=== PATIENT | female | born 1955 | race Caucasian/White ===

== ENCOUNTER → 2016-12-08 | Outpatient (CLI) | payer OTHER ==
[~2016-12-08] MED LIST: IOPAMIDOL (ISOVUE-300) 100 ML BTL IV ONE
--- NOTE | 2016-12-08 20:42 | IR ---
Left Lower Extremity Venogram Interventional Consult Relevant History: The patient had the great saphenous vein ablated before for insufficiency. Subseq uently, she developed a left medial ankle ulcer. Ultrasound interrogation at that time shows patent great saphenous system. This was subsequently retreated November 10, 2016. The patient now has wors ening ulceration. Bedside Ultrasound: ALT is patent. The great saphenous system is widely patent. The deep system is also patent. It is now twice that the great saphenous system has failed to shutdown after ablation. This is nayely arreola wonder of deep system hypertension and reflux. The patient had a history of DVT in 1984, with f ilter placement. I decided that a venogram would be very important in this patient. Informed Consent: Obtained from the patient. Risks and benefits were discussed. Cross Cutting Measure: Patient's current list of medications including all known prescriptions, over -the-counters, herbals, and vitamin/mineral/dietary supplements are reviewed. Medications' name, dos age, frequency, and route of administration are confirmed. Patient is a non-smoker. Prophylactic Antibiotic: Cefazolin was not ordered and administered for antimicrobial prophylaxis be cause it was not medically necessary. VTE Prophylaxis: There is not an order for VTE prophylaxis to be given within 24 hours of the proced ure end time. VTE prophylaxis was not given because it was not medically necessary. Technique: Patient is placed in supine position. A "timeout" procedure was performed to identify th e correct patient and the correct procedure. 1% Xylocaine was used for local anesthetic. All eleme nts of maximal sterile barrier technique, including cap, mask, sterile gown, sterile gloves, large st erile sheet, hand hygiene, and 2% chlorhexidine for cutaneous antisepsis, followed. Ultrasound evaluation of potential access site was performed. After successfully identifying a paten t vessel, ultrasound guidance was used to puncture the vessel. A permanent recording was created for the patient's record. When ultrasound is used, sterile gel and probe covers are used. The left common femoral vein is accessed under ultrasound guidance using a Micropuncture needle. 0.0 35 wire is advanced, followed by Micropuncture sheath. Outflow venogram is performed. Sheath was then exchanged over a wire for a Kumpe catheter, and central venogram was performed. Fluoroscopy: 1.1 minutes, 6 images. Findings: The left iliac and external iliac veins are patent. There is no evidence for May-Thurner syndrome. The IVC is patent. What is amazing is that the patient the has two IVC filters in place. One has fractured struts, with some displaced struts, eccentrically located at the bifurcation of the IVC, very lowly positioned. The second one is tilted into the left renal vein, almost horizontal or perpendicular in relationship with the IVC. This one does not have any fractured struts or displaced struts. These filters are very old, no longer used today, and are not removal. Amazingly, neither of these filters are causing any IVC stricture, thrombosis, or flow limiting. There is an area of irregularity at the external iliac vein, in junction with the internal iliac vein . There is reflux in the internal iliac vein. However, I did not see any significant reflux in the common and external iliac system. Impressions 1. No evidence for May-Thurner syndrome. 2. Patent central veins, without stricture, stenosis, or clot. 3. Nonremovable very old filters, as above described in detail. I would think at this point they ar e best left in place, as removal would require major surgery. Plan: I have scheduled the patient back for a repeat upright lower extremity duplex Doppler for furt her interrogation of what is patent in the superficial system and also of the deep system in the left lower extremity. Total [id number] consultation was 25 minutes. The patient expressed understanding and agreement to all the materials discussed today.
== END ==
LOC: FIMAGING 13:44
PROVIDERS: ATTEND Radiology Diagnostic Radiology
PROC: B54CZZA Ultrasonography of Left Lower Extremity Veins, Guidance (ICD-10-PCS; principal; 2016-12-08)
DX: L89.520 Pressure ulcer of left ankle, unstageable (principal)
CPT/HCPCS: 75820; C1769; J1644; Q9967

== ENCOUNTER → 2016-12-13 | Outpatient (CLI) | payer OTHER ==
--- NOTE | 2016-12-14 17:28 | US ---
Left Lower Extremity Duplex Venous Doppler Interventional Consult Indication: Continued ulceration. Post great saphenous vein ablation now twice in the left leg, with preliminary ultrasound evaluation showing that it is still patent. Post venography of the left centra l venous system, showing mild area of narrowing that does not radiographically appear to be hemodynam ically significant. History of DVT. Assess for reflux and what is open at this time. Technique: We tried an upright Doppler evaluation. This was unsuccessful. Patient was then placed in steep reverse Trendelenburg position on a tilt bed. Extensive evaluation of the deep and superficial systems was performed. Findings: Again, the great saphenous vein is patent. Above the knee, there is no reflux in the great saphenous vein. Below the knee, at the proximal calf, great saphenous vein refluxes 2.4 seconds. The vein measures 3 mm in size. There is only about a 10 cm length of the great saphenous vein below the knee where it is straight. More distal to that, it br anches into multiple superficial veins, all of which show some degree of reflux, all the way down to the ulcer, which is at the medial ankle. As for the deep system, there is reflux in the common femoral vein of 1.7 seconds. The femoral vein d oes not show reflux. The popliteal vein shows reflux of 3.6 seconds. There is no reflux in the training designer ior tibial veins. Impression: 1. A mixed picture. 2. Most of the abnormal refluxing veins are below the knee, specifically a 10 cm straight segment of the great saphenous vein, and the popliteal vein in the deep system. 3. I am still unclear as to whether the external iliac vein narrowing that by visual inspection does not seem to be much, is hemodynamically significant, and whether it translates to lack of outflow at the ankle level. 4. I am still amazed that the great saphenous system is still open, after two laser ablations. The above was discussed with Dr. Farrah Ordaz. The ulcer is clinically improving. Patient may have a c ombination of deep and superficial insufficiency or hypertension that is related to presence of two f ilters in the IVC as well. At this time, we will continue clinical management before proceeding with any additional procedures. Total face to face consultation time was 45 minutes. Cross-Cutting Measure: Patient's current list of medications including all known prescriptions, over -the-counter medications, herbals, and vitamin/mineral/dietary supplements are reviewed. Medications ' name, dosage, frequency, and route of administration are confirmed. Patient is a nonsmoker.
== END ==
LOC: FIMAGING 12:39
PROVIDERS: ATTEND Radiology Diagnostic Radiology
DX: I87.9 Disorder of vein, unspecified (principal); L97.329 Non-pressure chronic ulcer of left ankle with unspecified severity

== ENCOUNTER → 2017-07-23 | Outpatient (CLI) | payer OTHER ==
[~2017-07-23] MED LIST changes: +IOPAMIDOL (ISOVUE 370) 100 ML BTL IV ONE; -IOPAMIDOL (ISOVUE-300) 100 ML BTL IV ONE
== END ==
LOC: FIMAGING 08:35
DX: I87.1 Compression of vein (principal); Z96.643 Presence of artificial hip joint, bilateral
CPT/HCPCS: Q9967

== ENCOUNTER 2018-01-04 13:52 | Inpatient (IN) | payer OTHER ==
[2018-01-04] MEDS ORDERED: ONDANSETRON 4 MG/2 ML VIAL IVP PRN (14:38)
[2018-01-04] MEDS ORDERED: ACETAMINOPHEN 325 MG TAB PO PRN (14:38)
[2018-01-04] MEDS ORDERED: ONDANSETRON DISINTEGRATING 4 MG TAB PO PRN (14:38)
[2018-01-04 16:22] LABS: PLATELET COUNT 386 10^3/uL (150-400)
[2018-01-04] MEDS: VANCOMYCIN 1.25 GM in NS 250 ML IV SCH (17:13)
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
--- NOTE | 2018-01-04 19:44 | PDMN ---
Medical Necessity Medical necessity: C/M review: patient meets INPT criteria under M-350 Deep vein thrombosis of lower extremities, M-70 Cellulitis: Acute and persistent left diatal thigh and knee DVT on US, worsening of left lower extremity swelling and erythema requiring planned Wound care consult, ongoing IV Vancomycin Q 12 hrs., IV Morphine, subcutaneous Lovenox BID, acute inpt PT/OT, comorbid chronic medial left mallelolus skin ulceration extending above and below the level of the ankle (pictures of wound prior to Jackie boot placement) and erythema extending above the level of the Jackie boot, small incision below left knee medially due recent vein stripping - present on admission, history of chronic venous stasis of LLE, DVT of LLE in the s with IVC filter placement (still present by recent imaging), portal hypertension, portal vein thrombosis, esophageal varices. MD anticipates > 2 MN LOS for ongoing med nec for eval and TX of above.
[2018-01-04] MEDS: ENOXAPARIN 100 MG/ML SYR SC SCH (20:39)
[2018-01-04] MEDS: HYDROCODONE/APAP 5/325 TAB PO PRN (20:40)
[2018-01-05] MEDS: VANCOMYCIN 1.25 GM in NS 250 ML IV SCH ×2 (02:24→14:39)
[2018-01-05 05:27] LABS: PLATELET COUNT 368 10^3/uL (150-400)
[2018-01-05] MEDS: HYDROCODONE/APAP 5/325 TAB PO PRN ×3 (07:57→20:44)
[2018-01-05] MEDS ORDERED: ENOXAPARIN 40 MG/0.4 ML SYR SC SCH (09:00)
[2018-01-05] MEDS ORDERED: HYDROCODONE/APAP 5/325 TAB PO PRN (10:01)
[2018-01-05] MEDS: ENOXAPARIN 100 MG/ML SYR SC SCH ×2 (10:05→20:42)
--- NOTE | 2018-01-05 10:49 | HOSPPROG ---
Hospitalist Progress Note Assessment/Plan: 62y female with c/o leg redness and pain. First encounter, chart reviewed. D/W Dr Armstrong. #DVt -LLE -start coumadin -pt has used this in the past -bridge with lovenox -IVC filter in since 1979 #Cellulitis -LE on vanco -defer to ID #LLE wound -wound care ordered #Dispo -unclear -when ok with ID Subjective: Up in chair. Feels better today. Still weak. Objective: Vital Signs Temp Pulse Resp BP Pulse Ox 36.4 C 77 14 111/77 97 01/05/18 07:33 01/05/18 07:33 01/05/18 07:33 01/05/18 07:33 01/05/18 07:33 Laboratory Results 01/05/18 05:08 01/05/18 05:08 01/04/18 01/05/18 01/06/18 05:59 05:59 05:59 Intake Total 450 Balance 450 - Physical Exam Constitutional: no apparent distress, appears nourished, not in pain Eyes: PERRL, anicteric sclera, EOMI Ears, Nose, Mouth, Throat: moist mucous membranes, hearing normal, ears appear normal Cardiovascular: edema, No JVD, No tachycardia Respiratory: no respiratory distress, no rales or rhonchi, reduced air movement Gastrointestinal: normoactive bowel sounds, No tenderness, No ascites Skin: warm, erythema, No mottled Musculoskeletal: normal joint ROM, no joint effusions, generalized weakness Neurologic: AAOx3 Psychiatric: interacting appropriately, not anxious, not encephalopathic, thought process linear ICD10 Worksheet Patient Problems: Problems Problem Status Onset MRSA (methicillin resistant Staphylococcus aureus) Acute 10/27/16
[2018-01-05] MEDS ORDERED: WARFARIN SODIUM 5 MG TAB PO SCH (16:00)
--- NOTE | 2018-01-05 16:17 | ASMTCMCOM ---
CM Note CM Note Notes: Chart reviewed for discharge planning purposes. Pt is 62 year old female who lives Independently with her . She is employed outside the home. She is admitted with DVT and lower extremity cellulitis. ID is consulted as well. Per PT patient has no needs at this time. CM available to follow should needs arise. Date Signed: 01/05/2018 04:16 PM Electronically Signed By:Kylah Sheehan RN
--- NOTE | 2018-01-05 17:07 | PCMIDPN ---
Assessment/Plan: Assessment: Left lower extremity cellulitis with increase in swelling in the recent week. Failure of oral antibiotics. Patient was found to have DVT on evaluation in the emergency room. Patient now on IV vancomycin for potential overlying cellulitis as well as anticoagulation. Will continue to evaluate daily. Plan: 1. Continue IV vancomycin. 2. Evaluate clinically the left lower extremity on a daily basis. 01/05/18 17:06 Subjective: Patient is resting comfortably in her hospital room. She is feeling somewhat better. Notes that the redness up near her knee on her left leg is improved and that the swelling is somewhat improved from yesterday as well. Objective: Vancomycin # 1 Vital Signs Temp Pulse Resp BP Pulse Ox 36.3 C 77 14 112/72 95 01/05/18 15:18 01/05/18 15:18 01/05/18 15:18 01/05/18 15:18 01/05/18 15:18 Laboratory Results 01/05/18 05:08 01/05/18 05:08 01/04/18 01/05/18 01/06/18 05:59 05:59 05:59 Intake Total 450 Balance 450 - Physical Exam General Appearance: WD/WN, alert, no apparent distress, non-toxic Cardiac/Chest: regular rate, rhythm, No tachycardia Extremities: erythema, No non-tender, No normal inspection ( redness and swelling left lower extremity.) Skin: normal color, warm/dry, No rash Neuro/Psych: alert, normal mood/affect, oriented x 3 ICD10 Worksheet Patient Problems: Problems Problem Status Onset MRSA (methicillin resistant Staphylococcus aureus) Acute 10/27/16
[2018-01-06] MEDS: VANCOMYCIN 1.25 GM in NS 250 ML IV SCH ×2 (03:28→15:35)
[2018-01-06 05:33] LABS: PLATELET COUNT 396 10^3/uL (150-400)
[2018-01-06 05:41] LABS: INR 1.07 (0.83-1.16); PROTIME(PATIENT) 14.1 SEC (12.0-15.0)
[2018-01-06] MEDS: HYDROCODONE/APAP 5/325 TAB PO PRN ×3 (07:52→20:54)
--- NOTE | 2018-01-06 08:13 | SOAPPROG ---
SOAP Progress Note Assessment/Plan: Assessment: 62 yo well known to me with complex vascular picture had RFA twice with recurrence and most recently vein stripping Step cellulitus Much improved I placed honey on superior wound Adaptic, gauze and coban on l medial malleolus interdry to groin fold S: Better but wharf tender head O: Erythema much improved superior incision with eschar, less than 1 cm deep Inferior incision with minimal erythema, some mild exudate Groin incision with minor dehiscence Plan: 01/06/18 08:11 Objective: Vital Signs Temp Pulse Resp BP Pulse Ox 36.4 C 70 14 135/77 H 95 01/06/18 07:07 01/06/18 07:07 01/06/18 07:07 01/06/18 07:07 01/06/18 07:07 Laboratory Results 01/06/18 05:00 01/06/18 05:00 01/05/18 01/06/18 01/07/18 05:59 05:59 05:59 Intake Total 450 Balance 450 PT 14.1 SEC (12.0-15.0) 01/06/18 05:00 INR 1.07 (0.83-1.16) 01/06/18 05:00 ICD10 Worksheet Patient Problems: Problems Problem Status Onset MRSA (methicillin resistant Staphylococcus aureus) Acute 10/27/16
[2018-01-06] MEDS: ENOXAPARIN 100 MG/ML SYR SC SCH (10:11)
[2018-01-06] MEDS: MULTIVITAMINS 1 EACH TAB PO SCH (11:10)
[2018-01-06] MEDS: ASPIRIN 81 MG CHEWABLE TAB PO SCH (11:10)
--- NOTE | 2018-01-06 11:20 | HOSPPROG ---
Hospitalist Progress Note Assessment/Plan: 62y female with c/o leg redness and pain. D/W Dr Ordaz. #DVT -reviewed with Dr Ordaz -NOT DVT, scar tissue -stop coumadin -pt has had dvt in the past -give lovenox prophylactic only -IVC filter in since 1979, per patient, surgery says not to remove #Cellulitis -LE on vanco -defer to ID #LLE wound -wound care ordered #Dispo -unclear -when ok with ID Subjective: Up in the chair. Feels better today. Slept well. Objective: Vital Signs Temp Pulse Resp BP Pulse Ox 36.4 C 70 14 135/77 H 95 01/06/18 07:07 01/06/18 07:07 01/06/18 07:07 01/06/18 07:07 01/06/18 07:07 Laboratory Results 01/06/18 05:00 01/06/18 05:00 01/05/18 01/06/18 01/07/18 05:59 05:59 05:59 Intake Total 450 Balance 450 PT 14.1 SEC (12.0-15.0) 01/06/18 05:00 INR 1.07 (0.83-1.16) 01/06/18 05:00 - Physical Exam Constitutional: no apparent distress, appears nourished, not in pain Eyes: PERRL, anicteric sclera, EOMI Ears, Nose, Mouth, Throat: moist mucous membranes, hearing normal, ears appear normal Cardiovascular: edema, No JVD, No tachycardia Respiratory: no respiratory distress, no rales or rhonchi, clear to auscultation Gastrointestinal: normoactive bowel sounds, No tenderness, No ascites Skin: warm, erythema, induration Musculoskeletal: normal joint ROM, no joint effusions, generalized weakness Neurologic: AAOx3 Psychiatric: interacting appropriately, not anxious, not encephalopathic, thought process linear ICD10 Worksheet Patient Problems: Problems Problem Status Onset MRSA (methicillin resistant Staphylococcus aureus) Acute 10/27/16
[2018-01-06] MEDS ORDERED: ENOXAPARIN 30 MG/0.3 ML SYR SC SCH (11:30)
[2018-01-06] MEDS: ENOXAPARIN 40 MG/0.4 ML SYR SC SCH (12:04)
--- NOTE | 2018-01-06 15:00 | PCMIDPN ---
Assessment/Plan: Assessment: Left lower extremity cellulitis with increase in swelling in the recent week. Failure of oral antibiotics. re-evaluation of extremity ultrasound reveals that formerly called venous clot is probably secondary to her recent multiple venous ablation procedures. given that there is no clear clot in the left lower extremity now this may be entirely due to cellulitis that did not respond to oral outpatient therapy. Will continue on IV vancomycin for cellulitis. Will continue to evaluate daily. plan to maintain the vancomycin therapy as an outpatient for entire course given her improvement here and her lack of response to oral beta lactams as an outpatient. Plan: 1. Continue IV vancomycin. 2. Evaluate clinically the left lower extremity on a daily basis. 01/05/18 17:06 01/06/18 14:57 Subjective: Patient is sitting up with family in 1 of the sitting rooms on the hospital floor. She states that she is feeling better. She states the redness in her leg is decreased as well as the size. No fevers or chills. No rash. Objective: Vancomycin # 2 Vital Signs Temp Pulse Resp BP Pulse Ox 36.7 C 68 16 136/88 H 95 01/06/18 11:23 01/06/18 11:23 01/06/18 11:23 01/06/18 11:23 01/06/18 11:23 Laboratory Results 01/06/18 05:00 01/06/18 05:00 01/05/18 01/06/18 01/07/18 05:59 05:59 05:59 Intake Total 450 Balance 450 - Physical Exam General Appearance: WD/WN, alert, no apparent distress, non-toxic Extremities: non-tender, swelling, erythema, No normal inspection ( left lower extremity with increased edema. Decreased from baseline however. Erythema decreased as well.) Skin: normal color, warm/dry, No rash Neuro/Psych: alert, normal mood/affect, oriented x 3 ICD10 Worksheet Patient Problems: Problems Problem Status Onset MRSA (methicillin resistant Staphylococcus aureus) Acute 10/27/16
[2018-01-07] MEDS: VANCOMYCIN 1.25 GM in NS 250 ML IV SCH (03:09)
[2018-01-07] MEDS: HYDROCODONE/APAP 5/325 TAB PO PRN ×2 (06:02→15:34)
[2018-01-07] MEDS: ASPIRIN 81 MG CHEWABLE TAB PO SCH (09:33)
[2018-01-07] MEDS: ENOXAPARIN 40 MG/0.4 ML SYR SC SCH (09:33)
[2018-01-07] MEDS: MULTIVITAMINS 1 EACH TAB PO SCH (09:33)
--- NOTE | 2018-01-07 10:38 | SOAPPROG ---
SOAP Progress Note Assessment/Plan: Assessment/Plan: Carlyle is a 62yo F with history of left sided DVT, venous stasis and chronic wounds of the Left lower extremity. Recent vein stripping performed at outside facility. Admitted with LLE cellulitis Interdry in left groin fold, minimal wound dehiscence LLE wound care - adaptic to lower malleolus wound, honey to upper calf wound Lovenox prophylaxis Continue IV Vancomycin per ID S: Slept well. Comfortable. Reports her Left groin incision has been producing drainage which soaked her clothing. O: Patient is alert and sitting in the recliner in the window enjoying the morning sun. HENT: Head is normocephalic and atraumatic. Pupils equal and round. RESP: No increased work of breathing. SKIN: Left groin incision is clean with mild dehiscence, serous fluid stained on interdry. LLE dressings intact NEURO: Alert and oriented x 3. CN and motor grossly intact. PSYCH: Mood and affect normal. No acute distress. Objective: Vital Signs Temp Pulse Resp BP Pulse Ox 36.4 C 65 16 146/68 H 96 01/07/18 07:24 01/07/18 07:24 01/07/18 07:24 01/07/18 07:24 01/07/18 07:24 Laboratory Results 01/06/18 05:00 01/06/18 05:00 01/06/18 01/07/18 01/08/18 05:59 05:59 05:59 Intake Total 1000 Balance 1000 PT 14.1 SEC (12.0-15.0) 01/06/18 05:00 INR 1.07 (0.83-1.16) 01/06/18 05:00 ICD10 Worksheet Patient Problems: Problems Problem Status Onset MRSA (methicillin resistant Staphylococcus aureus) Acute 10/27/16
--- NOTE | 2018-01-07 13:15 | HOSPPROG ---
Hospitalist Progress Note Assessment/Plan: 62y female with c/o leg redness and pain. D/W Dr Jamil. #DVT -per Dr Ordaz no DVT -NOT DVT, multiple venous ablation procedures recently -stop coumadin -pt has had dvt in the past -give lovenox prophylactic only -IVC filter in since 1979, per patient, surgery says not to remove #Cellulitis -Failure of oral antibiotics -continue on IV vancomycin for cellulitis. -plan to maintain the vancomycin therapy as an outpatient #LLE wound -wound care ordered #Dispo -unclear -when ok with ID Subjective: Feeling well. Up in chair. No new issues. Eager to go home soon. Objective: Vital Signs Temp Pulse Resp BP Pulse Ox 36.4 C 65 16 146/68 H 96 01/07/18 07:24 01/07/18 07:24 01/07/18 07:24 01/07/18 07:24 01/07/18 07:24 Laboratory Results 01/06/18 05:00 01/06/18 05:00 01/06/18 01/07/18 01/08/18 05:59 05:59 05:59 Intake Total 1000 Balance 1000 PT 14.1 SEC (12.0-15.0) 01/06/18 05:00 INR 1.07 (0.83-1.16) 01/06/18 05:00 - Physical Exam Constitutional: no apparent distress, appears nourished, not in pain Eyes: PERRL, anicteric sclera, EOMI Ears, Nose, Mouth, Throat: moist mucous membranes, hearing normal, ears appear normal Cardiovascular: edema, No JVD, No tachycardia Respiratory: no respiratory distress, no rales or rhonchi, clear to auscultation Gastrointestinal: normoactive bowel sounds, No tenderness, No ascites Skin: warm, erythema, No mottled Musculoskeletal: normal joint ROM, no joint effusions, generalized weakness Neurologic: AAOx3 Psychiatric: interacting appropriately, not anxious, not encephalopathic, thought process linear ICD10 Worksheet Patient Problems: Problems Problem Status Onset MRSA (methicillin resistant Staphylococcus aureus) Acute 10/27/16
--- NOTE | 2018-01-07 13:36 | PCMIDPN ---
Assessment/Plan: Assessment/Plan: * Left lower extremity cellulitis with underlying venous insufficiency: Clinically improved with antibiotic therapy. [facility] shows growth of group A Streptococcus. Clinically this is most likely pathogen. Will therefore discontinue vancomycin and transition to cefazolin. Given overall improvement, suspect she may be able to transition to oral antibiotics to complete therapy in next 24-48 hours. Initial antibiotic therapy orally prior to admission was of short duration and now that she has shown improvement suspect she may continue to improve at that point in time on oral therapy. 01/07/18 13:32 Subjective: Patient feels significantly improved. Leg erythema decreased. Objective: Vital Signs Temp Pulse Resp BP Pulse Ox 36.4 C 65 16 146/68 H 96 01/07/18 07:24 01/07/18 07:24 01/07/18 07:24 01/07/18 07:24 01/07/18 07:24 Laboratory Results 01/06/18 05:00 01/06/18 05:00 01/06/18 01/07/18 01/08/18 05:59 05:59 05:59 Intake Total 1000 Balance 1000 Vancomycin # 3 Wound culture 01/04/2018 group A Streptococcus Blood cultures x2 no growth - Physical Exam General Appearance: alert, no apparent distress EENT: No scleral icterus, No thrush, No conjunctival petechiae Respiratory: lungs clear, No respiratory distress Cardiac/Chest: regular rate, rhythm, systolic murmur (2/6 left upper sternal border) Extremities: inflammation (Left lower extremity with ulceration present along medial aspect; erythema markedly reduced with some desquamating skin; separate wound more superiorly with small amount of necrosis centrally) ICD10 Worksheet Patient Problems: Problems Problem Status Onset MRSA (methicillin resistant Staphylococcus aureus) Acute 10/27/16
[2018-01-07] MEDS: ceFAZolin 2 GM/SWFI 2 GM/20 ML SYR IVP SCH ×2 (13:50→22:42)
[2018-01-07] MEDS ORDERED: ceFAZolin 2 GM/DEXTROSE 100 ML IV SCH (14:00)
--- NOTE | 2018-01-07 14:13 | ASMTCMCOM ---
CM Note CM Note Notes: Pts case discussed with NAOMY Ascencio and Candelaria Aguilar NP regarding d/c POC. Pt has been switched from vancomycin to cefazolin. Pt will eventually be switched to oral antibiotics in the next 24-48 hrs. Pt will most likely d/c independent when medically stable. CM available for changes. Plan: Independent Date Signed: 01/07/2018 02:13 PM Electronically Signed By:ALEXANDER Damian
[2018-01-08 07:44] VITALS: RESP 18
[2018-01-08] MEDS: HYDROCODONE/APAP 5/325 TAB PO PRN ×2 (08:12→12:29)
[2018-01-08] MEDS: ENOXAPARIN 40 MG/0.4 ML SYR SC SCH (08:12)
[2018-01-08] MEDS: ASPIRIN 81 MG CHEWABLE TAB PO SCH (08:13)
[2018-01-08] MEDS: MULTIVITAMINS 1 EACH TAB PO SCH (08:13)
[2018-01-08] MEDS: ceFAZolin 2 GM/SWFI 2 GM/20 ML SYR IVP SCH (09:20)
--- NOTE | 2018-01-08 10:20 | PCMIDPN ---
Assessment/Plan: Assessment/Plan: 1. LLE cellulitis with chronic wound: -marked improvement in degree of erythema with very minimal if any residual changes now -chronic lower leg wound noted and examined with wound care team. stable with chronic venous stasis dermatitis changes of skin around wound -edema of LLE noted -REviewed wound cultures from 01/04/18: showing Group A strep but also Staph aureus. Called and spoke to micro/Mattie. She has now identified it as Mrsa -placed patient in contact isolation - patient has lost peripheral IV. Given clinical improvement overall feel she can go to [facility] - Will need dual therapy with bactrim (for mrsa) and keflex ( for strep) but hopefully only short course barring anything new from #2 - reviewed side effects of therapy with patient. - care coordinated with wound care team, surgery, and Rn. 2. LLE wound from vein stripping -some drainage from it. wound depth around a little more than 1cm and with undermined edge - Recommend evaluation further to r/o possible abscess -Will order USG to start with - care coordinated with Dr. Ordaz - care coordinated with wound care team and Rn. Meds ancef 01/07/18 s/p vanco 01/04/18- 01/07/18 Subjective: afebrile. overall feels much better than on admit. less overall pain. most of her tenderness is around upper leg wound. some drainage from there but also had medi-honey placed two days ago. denies sob, abd pain or diarrhea. Objective: Vital Signs Temp Pulse Resp BP Pulse Ox 36.5 C 90 18 160/100 H 93 01/08/18 07:39 01/08/18 07:39 01/08/18 07:39 01/08/18 07:39 01/08/18 07:39 Laboratory Results 01/06/18 05:00 01/06/18 05:00 01/07/18 01/08/18 01/09/18 05:59 05:59 05:59 Intake Total 1000 20 Balance 1000 20 - Physical Exam General Appearance: alert, no apparent distress Respiratory: lungs clear Cardiac/Chest: regular rate, rhythm Extremities: swelling Abdomen: normal bowel sounds, non-tender, soft, No distended Skin: erythema (very mild erythema residual near vein stripping wound site. some drainage from there, which bubbles up when area around wound palpated. skin thickened around wound. very tender. wound probed, about a little more than 1cm deep with undermined edges especially laterally. ) - Time Spent With Patient Time Spent with Patient: greater than 35 minutes Time Spent with Patient: Greater than 35 minutes spent on this patients care, greater than 50% of time spent counseling, educating, and coordinating care regarding the above mentioned plan. ICD10 Worksheet Patient Problems: Problems Problem Status Onset MRSA (methicillin resistant Staphylococcus aureus) Acute 10/27/16
[2018-01-08] MEDS ORDERED: SULFAMETHOX/TMP 800/160 MG 1 TAB PO SCH (10:45)
--- NOTE | 2018-01-08 11:09 | HOSPPROG ---
Hospitalist Progress Note Assessment/Plan: 62y female with c/o leg redness and pain. Today is my 1st encounter with the patient. Chart reviewed. Reviewed her care w Dr Scanlon. * left lower extremity cellulitis with underlying venous insufficiency -history of vancomycin and cefazolin -will need dual therapy with Bactrim and Keflex -very appreciative of infectious disease * chronic left lower extremity wound from vein stripping -infectious Disease recommending further evaluation to rule out abscess -ultrasound pending * DVT/ see below -per previous provider who spoke with Dr. Ordaz and she does not have a DVT this is due to multiple venous ablation procedures -Coumadin discontinued -on low molecular weight heparin for prophylaxis treatment -patient has an IVC filter in place since 1979 -she is had a DVT in the past *Plan: will evaluate ultrasound, if no fluid collection, can dc home on 3-5 days of oral abx. Subjective: Carlyle is feeling well, ready to go home. Objective: Vital Signs Temp Pulse Resp BP Pulse Ox 36.5 C 90 18 160/100 H 93 01/08/18 07:39 01/08/18 07:39 01/08/18 07:39 01/08/18 07:39 01/08/18 07:39 Laboratory Results 01/06/18 05:00 01/06/18 05:00 01/07/18 01/08/18 01/09/18 05:59 05:59 05:59 Intake Total 1000 20 Balance 1000 20 PT 14.1 SEC (12.0-15.0) 01/06/18 05:00 INR 1.07 (0.83-1.16) 01/06/18 05:00 - Physical Exam Constitutional: no apparent distress, appears nourished Eyes: PERRL Ears, Nose, Mouth, Throat: hearing normal Cardiovascular: regular rate and rhythym Respiratory: no respiratory distress Gastrointestinal: normoactive bowel sounds Skin: warm Musculoskeletal: full muscle strength Neurologic: AAOx3 Psychiatric: interacting appropriately, not anxious ICD10 Worksheet Patient Problems: Problems Problem Status Onset MRSA (methicillin resistant Staphylococcus aureus) Acute 10/27/16
[2018-01-08] MEDS ORDERED: CEPHALEXIN 500 MG CAP PO SCH (12:00)
--- NOTE | 2018-01-08 12:32 | SOAPPROG ---
SOAP Progress Note Assessment/Plan: Assessment/Plan: Carlyle is a 62yo F with history of left sided DVT, venous stasis and chronic wounds of the Left lower extremity. Recent vein stripping performed at outside facility. Admitted with LLE cellulitis IV has infiltrated. Transition to PO antibiotics Wound care following Erythema significantly improved, pain improved Dispo: likely home later today if cleared by ID, hospitalists. F/u wound healing center. seen c Dr. Ordaz S: Feeling well O: Comfortable appearing. Eating breakfast in recliner. RESP: No increased work of breathing. SKIN: Erythema of LLE has resolved. Dressings intact Objective: Vital Signs Temp Pulse Resp BP Pulse Ox 36.5 C 90 18 160/100 H 93 01/08/18 07:39 01/08/18 07:39 01/08/18 07:39 01/08/18 07:39 01/08/18 07:39 Laboratory Results 01/06/18 05:00 01/06/18 05:00 01/07/18 01/08/18 01/09/18 05:59 05:59 05:59 Intake Total 1000 20 Balance 1000 20 PT 14.1 SEC (12.0-15.0) 01/06/18 05:00 INR 1.07 (0.83-1.16) 01/06/18 05:00 ICD10 Worksheet Patient Problems: Problems Problem Status Onset MRSA (methicillin resistant Staphylococcus aureus) Acute 10/27/16
[2018-01-08 14:30] VITALS: BP 148/70; PULSE 79; TEMP 98.2; O2SAT 94
--- NOTE | 2018-01-08 15:15 | ASMTLACE ---
NATHALIEE Length of stay for Answers: 4-6 days current admission Acuity / Level of Answers: Yes Care: Did the patient have an inpatient admission? # of Emergency department Answers: 1-2 visits in the last 6 months Score: 8 Date Signed: 01/08/2018 03:15 PM Electronically Signed By:ALEXANDER Damian
--- NOTE | 2018-01-08 16:10 | GDS ---
[f rep st] DISCHARGE SUMMARY DISCHARGE DIAGNOSES: 1. Left lower extremity cellulitis with underlying venous insufficiency. 2. Chronic left lower extremity wound from vein stripping. 3. History of a deep vein thrombosis. CONSULTATION: 1. Henrry Armstrong MD. 2. Farrah Ordaz MD. HISTORY OF PRESENT ILLNESS: Briefly, the patient is a 62-year-old woman, with a past medical history of chronic venous stasis left lower extremity, chronic medial malleolus skin ulceration, who has been going to Wound Care for the last 4 years. She presented with left leg swelling and redness. She has a history of a DVT of the left lower extremity in the 1980s and had an IVC filter placed at that time and is still in place by recent imaging. She has not had recurrent DVT. She had an ultrasound performed on admission that showed an occlusive left thrombus in the mid thigh with the saphenous vein coursing to the knee. This was subsequently reviewed by Dr. Ordaz. It shows that she has a history of an ablation of the left saphenous vein, which would account for the thrombus present within this vessel. This is considered a superficial vein and there is no evidence of a DVT in the left lower extremity. She has improved throughout her stay. She was treated with antibiotics. Today, she will be discharged home on Bactrim and Keflex. Current blood cultures showed no growth. She will follow up with the wound clinic this Sunday. HOSPITAL COURSE: 1. Left lower extremity cellulitis with underlying venous insufficiency. She was treated with vancomycin and cefazolin, much improved. 2. Chronic left lower extremity wound from vein stripping. She will follow up with Wound Clinic this Sunday. 3. History of a DVT. After evaluating the ultrasound, it does not appear that she has a deep vein thrombosis. DISCHARGE CONDITION: Stable. Blood pressure is 148/70, heart rate 79, respiratory rate 18, O2 saturation on room air 94%, temperature 36.8 Celsius. MEDICATIONS AT DISCHARGE: Please see the EMR. DISCHARGE INSTRUCTIONS: 1. Take antibiotics as prescribed and start tonight. 2. Have the RN show her how to do the dressing changes. 3. Follow up with [facility] this Sunday. 4. If she develops fever, chills, worsening swelling, or redness to her lower extremity, to return to the emergency room. Greater than 30 minutes discharging and coordinating care. /[id number]/MODL MTDD
== END 2018-01-08 17:00 | disposition home or self-care (01) | DRG 603 ==
LOC: F3E 14:21
PROVIDERS: ADMIT Internal Medicine; ATTEND Internal Medicine
DX: L03.116 Cellulitis of left lower limb (principal); I87.2 Venous insufficiency (chronic) (peripheral); I87.8 Other specified disorders of veins; Z96.643 Presence of artificial hip joint, bilateral
CPT/HCPCS: 97116-GP; 97161-GP; J0690; J1650; J2270; J3370

== ENCOUNTER → 2018-01-31 | Outpatient (CLI) | payer OTHER | LOC: FIMAGING 16:23 | PROVIDERS: ATTEND Surgery | DX: L02.416 Cutaneous abscess of left lower limb (principal) ==